=== PATIENT | female | born 1985 ===

== ENCOUNTER 2017-10-04 01:46 | Inpatient (IN) | payer MEDICAID, SELFPAY ==
[2017-10-04 02:37] VITALS: BMI 30.1
[2017-10-04] MEDS ORDERED: ceFAZolin 1 GM in Sodium Chloride 0.9% 100 ML IVPB ONE (02:38)
[2017-10-04] MEDS ORDERED: Lactated Ringer's 1,000 ML IV SCH ×3 (02:45→11:37)
[2017-10-04 03:06] LABS: BASO % 0.4 % (0.0-2.0); EOS # 0.1 K/uL (0.0-0.7); HEMOGLOBIN 12.2 g/dL (12.0-16.0); LYMPH # 2.1 K/uL (1.0-4.3); LYMPH % 35.5 % (20.0-40.0); MEAN CELL VOLUME 81.2 fl (81.0-99.0); MEAN CORPUSCULAR HEMOGLOBIN 26.7 pg (27.0-31.0); MEAN CORPUSCULAR HGB CONC 32.8 g/dL (33.0-37.0); MONO # 0.5 K/uL (0.0-0.8); MONO % 8.6 % (0.0-10.0); NEUT # 3.2 K/uL (1.8-7.0); NEUT % 53.5 % (50.0-75.0); NRBC % 0.4 % (0.0-0.0); RBC 4.56 Mil/uL (3.80-5.20); RED CELL DISTRIBUTION WIDTH 15.4 % (11.5-14.5); WHITE BLOOD COUNT 5.9 K/uL (4.8-10.8)
[2017-10-04] MEDS: Lactated Ringer's 1,000 ML IV SCH ×2 (05:31→05:54)
[2017-10-04] MEDS ORDERED: Morphine 1 mg/ml preservative-free Inj(Duramorph) ONE (06:20)
[2017-10-04] MEDS ORDERED: Oxycodone/Acetaminophen 5/325 mg Tab PO PRN ×2 (07:23→11:37)
[2017-10-04] MEDS ORDERED: DiphenhydrAMINE 50 mg/ml Inj IVP PRN ×2 (07:42→11:37)
--- NOTE | 2017-10-04 08:07 | OBHP ---
Datetime: 10/04/2017 02:30 IP Adm Impression: Term, intrauterine ; No Active Labor; Ruptured Membranes IP Admit Plan: Admit to unit; Initiate Section protocol Admit Comment, IP Provider: 32 yo EGA 38.6 via lmp 01/05/2017 and confirmed with US on 04/05. Presents with ROM, which occured while sleeping 4 hours prior to admission Reports: FM, Denies: CTX, VB Last intercourse 4 days prior ROS: Denies dizziness, blurred vision, CP/SOB/N/V/D/C, dysuria PNC: Dr. John at [facility]; GDM: diet controlled; tried metformin but side affe ct of dizziness obhx: 2011 F FT c/s 2/2 distress (tachycardia) pmhx: none famhx: none sochx: lives with , denies: smoking, alcohol, illicit drugs surghx: c/s 2011 NKDA Meds: PNV General: pleasant, in no acute distress HEENT: normocephalic, PERRLA; AAOx3 Heart: no murmurs, regular rate and rhythm, S1, S2 normal. Lungs: clear to auscultation bilaterally, no wheezing Abdomen: nontender, gravid CVA: negative Lower extremities: negative for pitting edema Bedside US: cephalic Speculum exam with vaginal pooling and clear, non bloody amniotic fluid gushing with cough Cervix closed GBS: neg; ABO-Rh: A+ ; Ab:neg ; HIV:neg ; RPR:neg ; GC/C:neg ; Rubella: Equivical ; HbsAg:neg ; PP D:neg ; TDap: 07/24/17 32 yo IUP EGA 38.6 based on LMP and confirmed with US presents with SROM Pt was planned to have repeat c/s and declined when in clinic -Admit to L_D for c/s -LR: bolus and maintenance -Labs: CBC, T_S -abx: ancef 1 gm IV Case d/w Dr. Mitch Clark MD PGY1 The patient was seen with resident I agree with the note Pelvic Type - PN: Adequate Extremities - PN: Normal Abdomen - PN: Normal Back - PN: Normal Breast - PN: Not Done Lungs - PN: Normal Heart - PN: Normal Thyroid - PN: Not Done Neurologic - PN: Normal HEENT - PN: Normal General - PN: Normal FHR - Baseline A Provider: 130 Amniotic Fluid Color, Provider: Clear Membranes, Provider: Ruptured Pool Provider: Positive Nitrazine Provider: Positive IP Hx Assessment: The History has been Reviewed and is Current Vital Signs Provider: Reviewed; Within Normal Limits IP Indication for Induction: Not Applicable IP Chief Complaint: Suspected ruptured membranes NICHD Variability Prov Fetus A: Moderate 6-25bpm NICHD Accel Fetus A IP Provider: 15X15 FHR Category Provider Fetus A: Category I NICHD Decel Fetus A IP Provider: None Dilatation, Provider: 0 Effacement, Provider: 50 Station, Provider: -3 Genitourinary Exam: Normal DTRs - PN: Not Done
--- NOTE | 2017-10-04 08:23 | OBDS ---
DELIVERY PERSONNEL Delivery Doctor: Boom Meyer MD Dump Attendant: Mary Dmias RN Anesthesiologist: Lanny Palomino MD Resident: Clarkbetsy ESTEVEZ-Leslee MATERNAL INFORMATION Delivery Anesthesia: Spinal Medications in Delivery: Oxytocin 30 units Estimated Blood Loss (ml): 800 Placenta Cultured: No Provider Comments: See operative note LABOR SUMMARY EDC: 10/12/2017 00:00 No. Babies in Womb: 1 Attempted: No Labor Anesthesia: None LABOR INFORMATION Reason for Induction: Not Applicable Oxytocin: N/A Group B Beta Strep: Negative Antibiotics # of Doses: 1 Antibiotics Time of Last Dose: 0611 Steroids Given: None Reason Steroids Not Administered: Not Applicable MEMBRANES Membranes Rupture Method: Spontaneous Rupture of Membranes: 10/03/2017 22:00 Length of Rupture (hrs): 8.82 Amniotic Fluid Color: Clear Amniotic Fluid Amount: Moderate Amniotic Fluid Odor: Normal STAGES OF LABOR Stage 3 hrs: 0 Stage 3 min: 1 CSECTION DELIVERY Primary Indication: Repeat Elective Secondary Indication: Repeat Elective CSection Urgency: Elective CSection Incidence: Repeat Labor: No Labor Elective: Elective CSection Incision: Lower Uterine Transverse BABY A INFORMATION Infant Delivery Date/Time: 10/04/2017 06:49 Method of Delivery: Born in Route : No : N/A Forceps: N/A Vacuum Extraction: N/A Shoulder Dystocia : No SHOULDER DYSTOCIA BABY A Delivery Date/Time: 10/04/2017 06:49 PRESENTATION/POSITION BABY A Presentation: Cephalic Cephalic Presentation: Vertex PLACENTA INFORMATION BABY A Placenta Delivery Time : 10/04/2017 06:50 Placenta Method of Delivery: Manual Removal Placenta Status: Delivered SCORES BABY A Heart Rate 1 min: >100 bpm Resp Effort 1 min: Good Cry Reflex Irritability 1 min: Cough or Sneeze or Pulls Away Muscle Tone 1 min: Active Motion Color 1 min: Body Patten, Extremities Blue Resuscitation Effort 1 min: Tactile Stimulation SCORE 1 MIN: 9 Heart Rate 5 min: >100 bpm Resp Effort 5 min: Good Cry Reflex Irritability 5 min: Cough or Sneeze or Pulls Away Muscle Tone 5 min: Active Motion Color 5 min: Body Patten, Extremities Blue Resuscitation Effort 5 min: Tactile Stimulation SCORE 5 MIN: 9 INFANT INFORMATION BABY A Gestational Age at Delivery: 38.6 Gestational Status: Term Outcome : Liveborn Infant Condition : Stable Sex: Male IDENTIFICATION/MEDS BABY A ID Band Number: [id number] ID Band Location: Left Leg; Left Arm WEIGHT/LENGTH BABY A Infant Birthweight (gms): 3000 Infant Weight (lb): 6 Infant Weight (oz): 10 CORD INFORMATION BABY A No. Cord Vessels: 3 Nuchal Cord : N/A Cord Blood Taken: Yes Infant Suction: Mouth; Nose ASSESSMENT BABY A Infant Complications: None Physical Findings at Delivery: Within Normal Limits Respirations: Appears Normal Goat Herder/ALS Called : No Infant Care By: Anne Marroquin RN/Anne Merida RN Transferred To: Nursery
[2017-10-04] MEDS ORDERED: Lactated Ringer's 500 ML IV SCH (10:00)
[2017-10-05 05:58] LABS: HEMOGLOBIN 9.8 g/dL (12.0-16.0); MEAN CELL VOLUME 79.6 fl (81.0-99.0); MEAN CORPUSCULAR HEMOGLOBIN 26.2 pg (27.0-31.0); MEAN CORPUSCULAR HGB CONC 32.9 g/dL (33.0-37.0); RBC 3.72 Mil/uL (3.80-5.20); RED CELL DISTRIBUTION WIDTH 14.8 % (11.5-14.5); WHITE BLOOD COUNT 9.1 K/uL (4.8-10.8)
--- NOTE | 2017-10-05 07:41 | OP ---
PROCEDURE DATE: 10/04/17 PREOPERATIVE DIAGNOSES: Intrauterine at 38 weeks 6 days, spontaneous rupture of membranes, history of previous section. POSTOPERATIVE DIAGNOSES: Intrauterine at 38 weeks 6 days, spontaneous rupture of membranes, history of previous section. OPERATION PERFORMED: Repeat low flap transverse section by Pfannenstiel skin incision. SURGEON: Brenna Meyer MD IMAGING MANAGER: Dr. Ball. TYPE OF ANESTHESIA: Spinal. ANESTHESIA ADMINISTERED BY: Dr. Palomino. ESTIMATED BLOOD LOSS: 800 mL. URINE OUTPUT: Delgado catheter put out approximately 300 mL of clear urine. INTRAVENOUS FLUID INTAKE: The patient received 1200 mL of D5 LR intraoperatively. OPERATIVE FINDINGS: Baby girl, vertex presentations, Apgars 9 and 9, weighing 3000 gm, normal uterus, tubes, and ovaries were identified. DESCRIPTION OF PROCEDURE: After informed consent was obtained, the patient was taken to the operating room where she was given spinal anesthesia. She was then prepped and draped in a normal sterile fashion with a leftward tilt. A Pfannenstiel skin incision was then made with a scalpel and carried down to the underlying layer of fascia. The fascia was nicked in the midline. The fascial incision was then extended laterally with the curved Castro scissors. The superior aspect of the fascial incision was then grasped with Jovany clamps, elevated up, and the rectus muscles were dissected off using both sharp and blunt dissection. Attention was then turned to the inferior aspect of the fascial incision, which in similar fashion, was grasped with Jovany clamps, elevated up, and the rectus muscles were dissected off using both sharp and blunt dissection. The rectus muscles were then in the midline. The peritoneum identified and entered sharply with the Metzenbaum scissors. The peritoneal incision was then extended superiorly and inferiorly with good visualization of the bladder. The bladder blade was then inserted. The vesicouterine peritoneum was identified and entered sharply with the Metzenbaum scissors. The incision was then extended laterally, the bladder flap was created digitally. The bladder blade was then readjusted and a low transverse incision was made with a scalpel. The uterine was then extended laterally with the bandage scissors. The infant's head was then delivered atraumatically. The nose and mouth were suctioned with DeLee suction trap. The cord was clamped and cut. The was handed off to awaiting pediatricians. The placenta was then removed manually. The uterus was exteriorized and cleared off all clots and debris. The uterine incision was repaired with 0 Vicryl in a running locked fashion. The abdomen was then copiously irrigated. The irrigant was removed with the suction device. The uterus was returned to the abdominal cavity. The incision was reexamined, it was noted to be hemostatic. The gutters were then cleared of all clots and debris. The peritoneum was then closed with 2-0 Vicryl in a running fashion. The muscle was reapproximated with 0 Vicryl in an interrupted fashion and the skin was closed with 3-0 on a Andrew needle. All sponge, lap, needle and instrument counts were correct x2 and the patient was taken to the recovery room in awakened and in stable condition. Brenna Meyer MD
--- NOTE | 2017-10-05 09:56 | OBPPN ---
Datetime: 10/05/2017 06:40 PP Pain Prov: Within normal limits PP Nausea Prov: Denies PP Flatus Prov: Yes PP BM Prov: No PP Breasts Prov: Not Done PP Heart Prov: Normal PP Lungs Prov: Normal PP Abdomen/Uterus Prov: Normal PP Lochia Prov: Normal PP Vulva/Perineum Prov: Not Done PP CVA Tenderness Prov: Normal PP Extremities Prov: Normal PP C/S Incision Prov: Normal PP Progress Prov: Normal PP Impression Prov: Normal progression PP Plan Prov: Continue present management PP Progress Note Prov: POD 1 S: 32 yo s/p on 10/04/2017. Pt. is seen and examined at bedside this AM. No over night events. Pt reports mild abdominal pain, but well controlled with pain meds. D/c curtis, dressing removed, incision site healing well, no exudate seen, dry and intact. No nausea, advised to advance diet as tolerated. Breast feeding without difficulty. Lochia is similar to menses volume. No bowel mo vement, but passing gas per rectum. Denies fever/chills, diarrhea, nausea/vomiting, chest pain, dyspn ea, and dizziness. O: VS: stable GEN: NAD Cardio: S1S2, no murmurs Lungs: clear breath sounds b/l, no wheezing Abdomen: BS+, tenderness to palpation. Incision scar noted, well healing with no exudate seen, dry and intact. Uterus is firm and at the level of the umbilicus. EXT: No edema, calves nontender NEURO/PSYCH: AAOx3, no grossly focal deficits, preserved affect and mood. Assessment/Plan: 32 yo s/p on 10/04/2017. Pt remains afebrile, tolerating pain w ith medication, doing well on POD#1. OOB with caution SCDs for DVT prophylaxis, encouraged ambulating Percocet 5/325mg, and Motrin 600mg for pain. Colace 100mg PO BID/Senokot 17.2 mg for constipation Encourage and ambulating f/u CBC post op, pending Tdap 07/24/17 Anticipated d/c to home, 10/07/2017. Case dw OB attending --- Tobias Clark MD PGY-[address] Park: I have evaluated the patient independently and I agree with the above IP PP Procedures: None Vital Signs Provider PP: Reviewed; Within Normal Limits
--- NOTE | 2017-10-06 11:34 | OBPPN ---
Datetime: 10/06/2017 07:00 PP Pain Prov: Within normal limits PP Nausea Prov: Denies PP Flatus Prov: Yes PP BM Prov: No PP Breasts Prov: Not Done PP Heart Prov: Normal PP Lungs Prov: Normal PP Abdomen/Uterus Prov: Normal PP Lochia Prov: Normal PP Vulva/Perineum Prov: Not Done PP CVA Tenderness Prov: Normal PP Extremities Prov: Normal PP C/S Incision Prov: Normal PP Progress Prov: Normal PP Impression Prov: Normal progression PP Plan Prov: Continue present management PP Progress Note Prov: POD 2 S: 32 yo s/p on 10/04/2017. Pt. is seen and examined at bedside this AM. No over night events. Pt reports mild abdominal pain, but well controlled with pain meds. D/c curtis, dressing removed, incision site healing well, no exudate seen, dry and intact. No nausea, advised to advance diet as tolerated. Breast and bottle feeding without difficulty. Lochia is similar to menses volume. No bowel movement, but passing gas per rectum. Denies fever/chills, diarrhea, nausea/vomiting, chest pain, dyspnea, and dizziness. O: VS: stable GEN: NAD Cardio: S1S2, no murmurs Lungs: clear breath sounds b/l, no wheezing Abdomen: BS+, tenderness to palpation. Incision scar noted, well healing with no exudate seen, dry and intact. Uterus is firm and at the level of the umbilicus. EXT: No edema, calves nontender NEURO/PSYCH: AAOx3, no grossly focal deficits, preserved affect and mood. Assessment/Plan: 32 yo s/p on 10/04/2017. Pt remains afebrile, tolerating pain w ith medication, doing well on POD#2. OOB with caution SCDs for DVT prophylaxis, encouraged ambulating Percocet 5/325mg, and Motrin 600mg for pain. Colace 100mg PO BID/Senokot 17.2 mg for constipation Encourage and ambulating f/u CBC post op: 9.8/29.6 Tdap 07/24/17 Rubella Equivocal: offer MMR before discharge Anticipated d/c to home, 10/07/2017. Case dw OB attending --- Tobias Clark MD PGY-[address] Park: I have evaluated the patient independently and I agree with the above IP PP Procedures: None Vital Signs Provider PP: Reviewed; Within Normal Limits
[2017-10-07] MEDS ORDERED: Measles, Mumps, and Rubella 0.5 ML VIAL SC ONE (09:00)
[2017-10-07 19:48] VITALS: BP 104/61; PULSE 69; RESP 18; TEMP 97.8; O2SAT 99
== END 2017-10-07 13:55 | disposition home or self-care (01) | DRG 371 ==
LOC: H.EROB2 01:46 → H.L&D 02:38 → H.OB/GYN 13:02
PROVIDERS: ADMIT Obstetrics & Gynecology Gynecology; ATTEND Obstetrics & Gynecology Gynecology
PROC: 10D00Z1 Extraction of Products of Conception, Low, Open Approach (ICD-10-PCS; principal; 2017-10-04)
PROC: 4A1HXCZ Monitoring of Products of Conception, Cardiac Rate, External Approach (ICD-10-PCS; 2017-10-04)
DX: O34.211 Maternal care for low transverse scar from previous cesarean delivery (principal); Z3A.38 38 weeks gestation of pregnancy; Z37.0 Single live birth

== ENCOUNTER 2018-07-21 09:46 | Emergency (ER) | payer SELFPAY ==
[2018-07-21 09:51] VITALS: BMI 29.2
[2018-07-21 09:52] VITALS: BP 98/65; PULSE 83; RESP 18; TEMP 98.7; O2SAT 99
--- NOTE | 2018-07-21 10:18 | ED PDOC ---
HPI: CCC, URI, Sore Throat Time Seen by Provider: 07/21/18 10:00 Chief Complaint (Nursing): Cough, Cold, Congestion Chief Complaint (Provider): Cough/nasal congestion History Per: Patient History/Exam Limitations: no limitations Have you had recent travel within the past 21 days to any of the following countries: [place], [place], [place] or [place]?: No Onset/Duration Of Symptoms: Days Current Symptoms Are (Timing): Still Present Location Of Pain: Ear(s), Throat Sick Contacts (Context): None Associated Symptoms: Sore Throat, Cough, Nasal Congestion. denies: Fever, Chills, Sputum, Neck Pain, Myalgias, Nausea, Vomiting, Diarrhea Ear Symptoms: Bilateral: None Additional History Per: Patient Additional Complaint(s): 33 y/o female with history of gestational dm, presents to the ed with 3 wk hx of cough, nasal congestion, throat pain and bilat ear pain. She states she has been doing salt water gargles and taking tylenol for pain up until 3 days ago because she found out she was . Pt reports cough is worse at night with nasal congestion. Pt denies fever, nausea, vomiting, chest pain, sob, abd pain, urinary symptoms. Past Medical History Vital Signs: Last Vital Signs Temp 98.7 F 07/21/18 09:50 Pulse 83 07/21/18 09:50 Resp 18 07/21/18 09:50 BP 98/65 L 07/21/18 09:50 Pulse Ox 99 07/21/18 09:50 - Medical History PMH: No Chronic Diseases, Diabetes Denies: Depression, HTN - Surgical History Surgical History: - Family History Family History: States: Unknown Family Hx - Living Arrangements Living Arrangements: With Family - Social History Alcohol: None Drugs: Denies - Home Medications Home Medications: Ambulatory Orders Medication Instructions Recorded Vit Calc,Iron,Folic 1 tab PO DAILY 10/04/17 [ Vitamins] Fluticasone Propionate [Flonase 1 - 2 spray NS BID PRN #1 bottle 07/21/18 Allergy Relief] Guaifenesin/Dextromethorphan 1 - 2 tab PO Q12H PRN #20 07/21/18 [Mucinex Dm ER 1,200-60 mg Tab] tab.er.12h - Allergies Allergies/Adverse Reactions: Allergies Allergy/AdvReac Type Severity Reaction Status Date / Time No Known Allergies Allergy Verified 10/04/17 02:37 Review of Systems ROS Statement: Except As Marked, All Systems Reviewed And Found Negative Constitutional: Negative for: Fever, Chills, Sweats, Weakness, Malaise, Weight loss Eyes: Positive for: Other (watery eyes ) ENT: Positive for: Ear Pain (bilat ear pain ), Nose Discharge (clear nasal discharge ), Nose Congestion, Throat Pain. Negative for: Ear Discharge, Nose Pain, Mouth Pain, Mouth Swelling, Throat Swelling Cardiovascular: Negative for: Chest Pain, Palpitations, Orthopnea Respiratory: Positive for: Cough. Negative for: Shortness of Breath, SOB with Exertion, Pleuritic Pain, Wheezing Gastrointestinal: Negative for: Nausea, Vomiting, Abdominal Pain Genitourinary Female: Negative for: Dysuria Physical Exam - Reviewed Nursing Documentation Reviewed: Yes Vital Signs Reviewed: Yes - Physical Exam Appears: Positive for: Well, Non-toxic, No Acute Distress Head Exam: Positive for: ATRAUMATIC, NORMAL INSPECTION, NORMOCEPHALIC Skin: Positive for: Normal Color, Warm, DRY Eye Exam: Positive for: EOMI, Normal appearance, PERRL ENT: Positive for: Normal ENT Inspection, Pharynx Is (neg exudate. mild erythema ), Nasal Congestion (pos for redness and swelling ), Pharyngeal Erythema. Negative for: Tonsillar Swelling Neck: Positive for: Normal, Painless ROM Cardiovascular/Chest: Positive for: Regular Rate, Rhythm Respiratory: Positive for: Normal Breath Sounds, Other (congested cough noted. ). Negative for: Decreased Breath Sounds, Accessory Muscle Use, Crackles, Rales, Stridor, Wheezing, Respiratory Distress Pulses-Radial (L): 2+ Pulses-Radial (R): 2+ Gastrointestinal/Abdominal: Positive for: Normal Exam, Bowel Sounds (normative ), Soft. Negative for: Tenderness Back: Positive for: Normal Inspection Extremity: Positive for: Normal ROM Neurological/Psych: Positive for: Awake, Alert, Normal Tone, Oriented - ECG O2 Sat by Pulse Oximetry: 99 - Progress ED Course And Treament: Impression is URI, clinical findings discussed with patient in Thai by advertising copy writer. rx given for Flonase and Mucinex DM. Pt instructed to return to ED if symptoms worsens or fever, bodyaches develop. Pt given referral to [facility]. Pt advise to follow-up if no improvement within one week. Pt verbalizes understanding. Disposition - Clinical Impression Clinical Impression: Upper respiratory infection - Patient ED Disposition Is Patient to be Admitted: No - Disposition Referrals: [facility] [Outside] Disposition: Routine/Home Disposition Time: 10:10 Condition: GOOD Prescriptions: Fluticasone Propionate [Flonase Allergy Relief] 1 - 2 spray NS BID PRN #1 bottle PRN Reason: Allergy Symptoms Guaifenesin/Dextromethorphan [Mucinex Dm ER 1,200-60 mg Tab] 1 - 2 tab PO Q12H PRN #20 tab.er.12h PRN Reason: Cough Instructions: Cough, Runny Nose, and the Common Cold (DC) Forms: [facility] (Bhutanese) Print Language: [place] - POA Present On Arrival: None
== END 2018-07-21 10:30 | disposition home or self-care (01) ==
LOC: H.ER 09:46
DX: J06.9 Acute upper respiratory infection, unspecified (principal)